=== PATIENT | female | born 1960 | race Caucasian/White ===

== ENCOUNTER 2018-01-30 15:53 | Outpatient (CLI) | payer OTHER ==
--- NOTE | 2018-01-31 07:57 | Mammography Report ---
Reason: SCREENING MAMMO Procedure Date: 01/30/2018 Accession Number: [id number] / [id number] Procedure: MELISSA - Screening Mammo w/Dale CPT Code: FULL RESULT: EXAM: Screening Mammo w/Dale DATE: 01/30/2018 4:42 PM CLINICAL HISTORY: Screening. No reported personal or family history of breast cancer. TECHNIQUE: Bilateral CC and MLO views were obtained. COMPARISON: 10/07/2014 through 01/12/2009 FINDINGS: The breasts demonstrate heterogeneously dense fibroglandular parenchyma bilaterally. Bilateral breasts: There are no suspicious masses, calcifications or areas of distortion. IMPRESSION: Negative examination RECOMMENDATION: Routine annual screening unless otherwise clinically indicated. BI-RADS CATEGORY 1: Negative STANDARD QUALIFYING STATEMENTS: 1. This examination was not reviewed with the aid of Computer-Aided Detection (CAD). 2. A negative or benign imaging report should not preclude biopsy if clinically suspicious findings are present. 3. Dense breasts may obscure an underlying neoplasm. 4. This examination was reviewed with the aid of 3D breast imaging (tomosynthesis).
== END 2018-01-30 15:54 | disposition home or self-care (01) ==
LOC: DI 15:53
PROVIDERS: ATTEND Nurse Practitioner Family
DX: Z12.31 Encounter for screening mammogram for malignant neoplasm of breast (principal)
CPT/HCPCS: 77063; 77067

== ENCOUNTER 2019-03-21 11:01 | Outpatient (CLI) | payer BC ==
--- NOTE | 2019-04-01 13:48 | Mammography Report ---
Reason: ROUTINE MAMMO Procedure Date: 03/21/2019 Accession Number: [id number] / [id number] Procedure: MELISSA - Screening Mammo w/Dale CPT Code: Final Report FULL RESULT: EXAM: Screening Mammo w/Dale DATE: 03/21/2019 11:28 AM CLINICAL HISTORY: Screening encounter. TECHNIQUE: (B) - Bilateral CC and MLO views were obtained. Right laterally exaggerated CC view is obtained. COMPARISON: 01/30/2018 through 05/26/2010. PARENCHYMAL PATTERN: (D) - The breast(s) demonstrate(s) heterogeneously dense fibroglandular parenchyma. FINDINGS: There are no suspicious masses, calcifications, or areas of distortion. IMPRESSION: Negative examination. BI-RADS category 1. RECOMMENDATION: (ANNUAL) - Recommend routine annual screening mammography. BI-RADS CATEGORY: (1) - Negative. STANDARD QUALIFYING STATEMENTS: 1. This examination was not reviewed with the aid of Computer-Aided Detection (CAD). 2. A negative or benign imaging report should not preclude biopsy if clinically suspicious findings are present. 3. Dense breasts may obscure an underlying neoplasm. 4. This examination was reviewed with the aid of 3D breast imaging (tomosynthesis).
== END 2019-03-21 11:02 | disposition home or self-care (01) ==
LOC: DI 11:01
DX: Z12.31 Encounter for screening mammogram for malignant neoplasm of breast (principal)
CPT/HCPCS: 77063; 77067

== ENCOUNTER 2021-01-25 13:34 | Emergency (ER) | payer MEDICAID ==
[2021-01-25 13:57] VITALS: BP 150/86
--- NOTE | 2021-01-25 16:21 | XRAY Report ---
PROCEDURE: Chest 1 View X-Ray INDICATIONS: Chest pain TECHNIQUE: One view of the chest was acquired. COMPARISON: None FINDINGS: Surgical changes and devices: None. Lungs and pleura: No pleural effusions or pneumothorax. Lungs are clear. Mediastinum: Mediastinal contours appear normal. Heart size is normal. Bones and chest wall: No suspicious bony lesions. Overlying soft tissues appear unremarkable. IMPRESSION: Normal appearance of the chest. Reviewed by: Malik Johnson MD on 01/25/2021 4:19 PM PST Approved by: Malik Johnson MD on 01/25/2021 4:19 PM PST Station ID: [id number]
--- NOTE | 2021-01-25 16:43 | ED Physician Documentation ---
PD HPI URI - Stated complaint Stated Complaint: CHEST CONGESTIONS - Chief complaint Chief Complaint: Heent - History obtained from History obtained from: Patient - History of Present Illness Timing - onset: How many weeks ago (3) Timing duration: Weeks (3) Timing details: Gradual onset, Still present, Waxing and waning Associated symptoms: Nasal congestion, Rhinorrhea, Dry cough, Dyspnea. No: Fever, Chills Contributing factors: Sick contact (has a sick parrot) Improves by: Rest Worsened by: Activity Similar symptoms before: No diagnosis Recently seen: Clinic - Additional information Additional information: Previously well 60-year-old female has a pet parrot that she bought from a pet store that sells sick animals. The patient herself has become ill with nasal congestion cough and chest congestion. She has been in to the health department and she has been told that there has been a recent positive psittaci in a store bought pet this month. The health department has confirmed this. The patient brings in with her 2 jars containing fragments of something one jar has an ant and a seed and redish debris. She wants me to analyse this as she feels it fell out of her hair while she was carrying dishes. Review of Systems Constitutional: reports: Fatigue. denies: Fever, Chills Eyes: denies: Photophobia Ears: denies: Ear pain Nose: reports: Rhinorrhea / runny nose, Congestion Throat: denies: Dental pain / toothache, Oral lesions / sores, Sore throat Cardiac: denies: Chest pain / pressure, Palpitations Respiratory: reports: Dyspnea, Cough, Wheezing GI: denies: Abdominal Pain, Nausea, Vomiting : denies: Dysuria, Frequency PD PAST MEDICAL HISTORY - Past Medical History Cardiovascular: None Respiratory: None Endocrine/Autoimmune: None GI: None : None HEENT: None Psych: Depression Musculoskeletal: None Derm: None - Past Surgical History Past Surgical History: Yes 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 - Present Medications Home Medications: Ambulatory Orders Medication Instructions Recorded Confirmed Fluoxetine HCl 40 mg PO HS 06/12/12 03/20/15 Hydrocodone/Acetaminophen [[place] 1 each PO Q6H PRN #20 tablet 03/20/15 5-325 Tablet] Doxycycline Hyclate 100 mg PO BID #20 tab 01/25/21 - Allergies Allergies/Adverse Reactions: Allergies Allergy/AdvReac Type Severity Reaction Status Date / Time Latex, Natural Rubber Allergy Itching Verified 01/25/21 13:48 - Social History Does the pt smoke?: No Smoking Status: Never smoker - Immunizations Immunizations are current?: Yes Immunizations: TDAP current <10years PD ED PE NORMAL - Vitals Vital signs reviewed: Yes (hypertensive ) - General General: Alert and oriented X 3, No acute distress, Well developed/nourished - HEENT HEENT: Atraumatic, PERRL, EOMI, Ears normal, Moist mucous membranes, Pharynx benign, Dentition benign - Neck Neck: Supple, no meningeal sign, No bony TTP - Cardiac Cardiac: RRR, No murmur - Respiratory Respiratory: No respiratory distress, Other (diminished breath sounds. 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, No motor deficit, No sensory deficit, Normal speech Eye Opening: Spontaneous Motor: Obeys Commands Verbal: Oriented GCS Score: 15 - Psych Psych: Normal mood, Normal affect Results - Vitals Vitals: Vital Signs - 24 hr 01/25/21 13:49 Temperature 36.5 C Heart Rate 78 Respiratory 18 Rate Blood Pressure 150/86 H O2 Saturation 99 Oxygen O2 Source Room air - Rads (name of study) chest Radiology: Prelim report reviewed (Impression: Normal appearance of the chest.), EMP read indepedently, See rad report PD MEDICAL DECISION MAKING - ED course Complexity details: reviewed old records, reviewed results, re-evaluated patient, considered differential, d/w patient ED course: 60-year-old female with exposure to chlamydia psittaci feels that she is having some issue with bronchial spasm and she has clear lungs with diminished breath sounds no obvious wheeze. Chest x-ray is without evidence of infiltrate. She likely does have exposure to chlamydia and we discussed empiric treatment. She would like some type of confirmation and so we have drawn acute serum for serology. She will be given a prescription for doxycycline. The serologies sent to a send out lab. She will need follow-up. Departure - Departure Disposition: 01 Home, Self Care Clinical Impression: Chlamydia psittaci infection Condition: Stable Instructions: ED Upper Resp Infec Abx Tx Follow-Up: JAY LOPEZ MD [Physician No Access] - Prescriptions: Doxycycline Hyclate 100 mg PO BID #20 tab Comments: Ariadne, Today your chest x-ray is without evidence of pneumonia. Chlamydia psittaci is an obligate intracellular bacterium. It usually only invades superficially and can have asymptomatic infection. There is suspicion that you have infection now and empiric antibiotic therapy with doxycycline is luis miguel mmended. We have drawn blood to test for antibodies to psittaci. You will need to follow up with your primary care doctor for results of this test. A script for doxycycline has been escribed to [facility] in [place]. Discharge Date/Time: 01/25/21 17:04
== END 2021-01-25 17:04 | disposition home or self-care (01) ==
LOC: ED 13:34
DX: A70 Chlamydia psittaci infections (principal)
CPT/HCPCS: 36415; 81599; 99284

== ENCOUNTER 2023-01-19 09:21 | Outpatient (CLI) | payer BC ==
[2023-01-19 14:52] LABS: BASOPHILS # (AUTO) 0.1 10^3/uL (0.0-0.1); EOSINOPHILS # (AUTO) 0.2 10^3/uL (0.0-0.7); EOSINOPHILS % (AUTO) 2.4 %; HCT - HEMATOCRIT 44.2 % (37.0-47.0); HGB - HEMOGLOBIN 14.2 g/dL (12.0-16.0); LYMPHOCYTES % (AUTO) 31.9 %; MEAN CORPUSCULAR HGB CONC 32.1 g/dL (32.0-36.0); MEAN CORPUSCULAR VOLUME 99.5 fL (81.0-99.0); MEAN PLATELET VOLUME 10.7 fL (7.9-10.8); MONOCYTES # (AUTO) 0.5 10^3/uL (0.0-1.0); MONOCYTES % (AUTO) 8.5 %; NEUTROPHILS # (AUTO) 3.5 10^3/uL (1.5-6.6); PLT - PLATELET COUNT 300 10^3/uL (130-450); RED BLOOD COUNT 4.44 10^6/uL (4.20-5.40); RED CELL DISTRIBUTION WIDTH 12.3 % (12.0-15.0); WHITE BLOOD COUNT 6.2 x10^3/uL (4.8-10.8)
[2023-01-19 15:10] LABS: ALBUMIN 4.4 g/dL (3.2-5.5); ALBUMIN/GLOBULIN RATIO 1.8 (1.0-2.2); ALKALINE PHOSPHATASE 66 IU/L (42-121); ALT ALANINE AMINOTRANSFERASE 15 IU/L (10-60); AST ASPARTATE AMINOTRANSFERASE 18 IU/L (10-42); BILIRUBIN,TOTAL 0.4 mg/dL (0.2-1.0); BUN - BLOOD UREA NITROGEN 18 mg/dL (6-20); CALCIUM 9.7 mg/dL (8.5-10.3); CARBON DIOXIDE - CO2 29 mmol/L (21-32); CHLORIDE 107 mmol/L (101-111); CHOL/HDL RATIO 4.1 (<4.4); CHOLESTEROL 232 mg/dL; CREATININE 0.7 mg/dL (0.6-1.3); GFR - MDRD 85 (>89); GLUCOSE 86 mg/dL (74-104); HDL CHOLESTEROL 56 mg/dL; LDL CHOLESTEROL,CALCULATED 159 mg/dL; LDL/HDL RATIO 2.8 (<4.4); POTASSIUM 4.8 mmol/L (3.5-4.5); SODIUM 139 mmol/L (135-145); TOTAL PROTEIN 6.8 g/dL (6.4-8.9); TRIGLYCERIDES 84 mg/dL (48-352); VLDL CHOLESTEROL 17 mg/dL
[2023-01-19 15:14] LABS: THYROID STIMULATING HORMONE 2.67 uIU/mL (0.34-5.60)
== END 2023-01-19 09:22 | disposition home or self-care (01) ==
LOC: LAB.S 09:21
PROVIDERS: ATTEND Nurse Practitioner Acute Care
DX: Z13.228 Encounter for screening for other metabolic disorders (principal); Z13.220 Encounter for screening for lipoid disorders; Z13.0 Encounter for screening for diseases of the blood and blood-forming organs and certain disorders involving the immune mechanism; Z13.29 Encounter for screening for other suspected endocrine disorder
CPT/HCPCS: 36415; 80053; 80061; 83721; 84443; 85025

== ENCOUNTER 2023-02-27 09:42 | Outpatient (CLI) | payer BC ==
--- NOTE | 2023-02-28 12:57 | Mammography Report ---
BILATERAL DIGITAL SCREENING MAMMOGRAM 3D/2D WITH EXAGGERATED CC: 02/27/2023 CLINICAL: Routine screening. Family history of breast cancer. Comparison is made to exams dated: 01/30/2018 mammogram, 10/07/2014 mammogram, 05/03/2012 mammogram, mammogram, and 01/12/2009 mammogram - [facility]. Both breasts are heterogeneously dense, which may obscure small masses (category c / 51-75% glandular tissue). No significant masses, calcifications, or other findings are seen in either breast. There has been no significant interval change. IMPRESSION: NEGATIVE There is no mammographic evidence of malignancy. A 1 year screening mammogram is recommended. Based on the Tyrer Cuzick model (a risk assessment model) the patients lifetime risk is 10.6% and her 10 year risk is 4.6%. According to the ACR, ACS, and NCCN guidelines, an annual breast MRI exam brandi g with mammogram is recommended if the patients lifetime risk is 20% or greater. This exam was interpreted at Station ID: [id number]. NOTE: For mammograms, a report in lay terms will be sent to the patient. Approximately 15% of breast malignancies will not be visualized mammographically. In the management of a palpable breast mass, a negative mammogram must not discourage biopsy of a clinically suspicious lesion. Electronically Signed By: Hi gupta/ira:02/27/2023 16:49:36 ACR BI-RADS Category 1: Negative 3341F PARENCHYMAL PATTERN: (D) - The breast(s) demonstrate(s) heterogeneously dense fibroglandular rico montalvo. BI-RADS CATEGORY: (1) - 1 Mammogram [id number] 1 year screening LATERALITY: (B)
== END 2023-02-27 09:43 | disposition home or self-care (01) ==
LOC: DI.S 09:42
PROVIDERS: ATTEND Nurse Practitioner Acute Care
DX: Z12.31 Encounter for screening mammogram for malignant neoplasm of breast (principal); Z80.3 Family history of malignant neoplasm of breast; R92.333 Mammographic heterogeneous density, bilateral breasts

== ENCOUNTER 2023-05-02 10:45 | Day surgery (SDC) | payer BC ==
[2023-05-02] MEDS: LACTATED RINGERS 1,000 ML IV ONE ×2 (11:10→13:51)
--- NOTE | 2023-05-02 11:40 | HISTORY & PHYSICAL EXAMINATION ---
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 Social & Family Hx - Social History Does the pt smoke?: No Smoking Status: Never smoker Meds/Allgy - Home Medications Home Medications: Ambulatory Orders Medication Instructions Recorded Confirmed Fluoxetine HCl 40 mg PO HS 06/12/12 03/20/15 Hydrocodone/Acetaminophen [[place] 1 each PO Q6H PRN #20 tablet 03/20/15 5-325 Tablet] Doxycycline Hyclate 100 mg PO BID #20 tab 01/25/21 - Allergies Allergies/Adverse Reactions: Allergies Allergy/AdvReac Type Severity Reaction Status Date / Time Latex, Natural Rubber Allergy Itching Verified 01/25/21 13:48 Exam - Vital Signs Vital Signs: Vital Signs x48h Temp Pulse Resp BP Pulse Ox 05/02/23 10:52 97.5 F L 68 16 120/81 H 100 Impression/Plan - Problem List Problem List: Pre-op H&P I am asked to see Ariadne for a screening colonoscopy examination. GI symptoms: None Family history of colon cancer: No Family history of colon polyps: No Personal history of colon polyps: Unsure Last colonoscopy examination: 10 years ago Anticoagulant use: None The Past Family, Social and Personal History has been reviewed with the patient. ROS Denies fevers, chills, night sweats, shortness of breath, chest pain, change in the color of skin or urine, diarrhea, constipation, hematemesis, hematochezia, headache, visual changes, muscle aches. PE VSS, Afeb HEENT: Pupils equal, round and reactive to light, sclera anicteric, normal hearing, oral mucous membranes moist and without lesions NECK: Supple without lymphadenopathy, thyromegaly or carotid bruits LUNGS: Clear to auscultation without wheezing HEART: NSR without murmurs CHEST: Equal and symmetric expansion, no rib pain ABD: Soft, nontender, no hepatosplenomegaly, no hernias GROIN: No hernias or lymphadenopathy EXTREMITIES: Normal neuro and muscular exam SKIN: Anicteric Radiologic Studies N/A Assessment Request for a screening colonoscopy examination. Plan Screening colonoscopy under sedation through the Day Surgery admission protocol at [facility]. Consent: Ariadne has been counseled for the procedure, it's indications, risks, benefits and expected outcome as well as alternative therapies. We specifically discussed risks associated with anesthesia and insertion of the endoscope into the large intestine which includes bleeding and injury to the colon which may require surgical intervention. Ariadne understands, agrees, and consents to the proposed operative strategy and requests that we proceed with the procedure as outlined in our discussion. Alex Jaquez MD, FACS General Surgery Service
[2023-05-02] MEDS ORDERED: PROPOFOL 500 MG/50 ML 500 MG/50 ML VIAL ONE (12:47)
--- NOTE | 2023-05-02 13:06 | ANESTHESIA ---
Pre-Anesthesia VS, & Labs - Diagnosis screening - Procedure colonoscopy Vital Signs: Temp Pulse Resp BP Pulse Ox O2 Flow Rate 36.4 C L 68 16 120/81 H 100 05/02/23 10:52 05/02/23 10:52 05/02/23 10:52 05/02/23 10:52 05/02/23 10:52 Height: 5 ft 7 in Weight (kg): 68.4 kg Body Mass Index: 23.6 BMI Classification: Normal - NPO Other (prep as directed, 830) - Is Patient ?: No Home Medications and Allergies Fluoxetine HCl 40 mg PO HS 06/12/12 Allergies/Adverse Reactions: Allergies Allergy/AdvReac Type Severity Reaction Status Date / Time Latex, Natural Rubber Allergy Itching Verified 01/25/21 13:48 Anes History & Medical History - Anesthetic History Anesthesia Complications: reports: No previous complications - Medical History Cardiovascular: reports: None Pulmonary: reports: None Gastrointestinal: reports: None Urinary: reports: None Musculoskeletal: reports: None Endocrine/Autoimmune: reports: None Skin: reports: None Smoking Status: Never smoker Psychosocial: reports: Alcohol (rarely 1-3 month) History of Cancer?: No - Surgical History General: reports: EGD Eyes Ears Nose Throat (EENT): reports: Other Gynecologic: reports: section Exam General: Alert, Oriented x3 Neck Mobility: Normal Mallampati classification: II Thyromental Distance: greater than 6 cm Respiratory: Lungs clear Cardiovascular: Regular rate Plan Anesthesia Type: Total IV Consent for Procedure(s) Verified and Reviewed: Yes Code Status: Attempt Resuscitation ASA classification: 2-Mild systemic disease Is this case an emergency?: No
[2023-05-02 13:59] VITALS: BP 92/62; O2SAT 97
--- NOTE | 2023-05-02 15:08 | ANESTHESIA POST OP EVALUATION ---
Anesthesia Post Eval - Post Anesthesia Eval Vitals: Last Vital Signs Temp 36.2 C L 05/02/23 14:05 Pulse 58 L 05/02/23 14:05 Resp 12 05/02/23 14:05 BP 92/62 05/02/23 14:05 Pulse Ox 97 05/02/23 14:05 O2 Flow Rate CV Function Including HR & BP: Stable Pain Control: Satisfactory Nausea & Vomiting: Negative Mental Status: Baseline Respiratory Status: Airway Patent Hydration Status: Satisfactory Anesthesia Complications: None
== END 2023-05-02 10:46 | disposition home or self-care (01) ==
LOC: SDS 10:45
PROVIDERS: ATTEND Surgery
DX: Z12.11 Encounter for screening for malignant neoplasm of colon (principal)
CPT/HCPCS: 45378; J7120